=== PATIENT | female | born 1995 | race Caucasian/White ===

== ENCOUNTER 2018-01-13 20:54 | Emergency (ER) | payer BC ==
[~2018-01-13] VITALS: Ht 165.1 cm; Wt 94.3 kg
[~2018-01-13 20:54] MED LIST: LOR5/325 PO
--- NOTE | 2018-01-13 20:59 | ER Report ---
History and Physical Time Seen By MD: 20:59 HPI/ROS CHIEF COMPLAINT: Bilateral ear pain, fever, sore throat HISTORY OF PRESENT ILLNESS: 22-year-old female presents to the ER complaining of severe bilateral ear pain and throat pain. She's been unable to swallow. She was seen couple of days ago at urgent care and started on Keflex. She's not had any improvement after 2-3 days of Keflex. She's been taking ibuprofen without relief. Patient notes some nausea but no vomiting. Patient notes a productive cough. She notes increased pain with swallowing. REVIEW OF SYSTEMS: Respiratory: No cough, no dyspnea. Cardiovascular: No chest pain, no palpitations. Gastrointestinal: No vomiting, no abdominal pain. Musculoskeletal: No back pain. Allergies: Coded Allergies: No Known Drug Allergies (Unverified , 01/13/18) Home Meds Active Scripts Oxycodone Hcl/Acetaminophen (PERCOCET 5-325 MG TABLET) 1 Each Tablet, 1 EACH PO Q4-6H Y for PAIN, #12 Prov:MARCOS DUPONT DO 01/13/18 Amoxicillin/Pot Clav 875-125 Mg Tab (AUGMENTIN 875-125 TABLET) 1 Each Tablet, 1 TAB PO Q12H for infection, #14 TAB TAKE ONE TABLET BY MOUTH EVERY 12 HOURS Prov:MARCOS DUPONT DO 01/13/18 Reported Medications Cephalexin 500 Mg Tab (KEFLEX 500 MG TAB) 500 Mg Tablet, 500 MG PO Q6H, #28 TAB 01/13/18 Discontinued Scripts Hydrocodone Bit/Acetaminophen (HYDROCODON-ACETAMINOPHEN 5-325) 1 Each Tablet, 1 EACH PO Q4H Y for PAIN, #12 TAB 0 Refills Prov:MARIA ALEJANDRA WHYTE MD 03/02/17 Reviewed Nurses Notes: Yes Old Medical Records Reviewed: Yes Constitutional Vital Sign - Last 24 Hours 01/13/18 01/13/18 01/13/18 01/13/18 21:00 21:00 21:15 21:30 Temp 97.8 Pulse 88 88 82 94 Resp 14 B/P (MAP) 125/70 (88) 114/69 (84) Pulse Ox 96 96 95 95 O2 Delivery Room Air 01/13/18 01/13/18 21:45 22:00 Pulse 82 89 B/P (MAP) 116/77 (90) Pulse Ox 97 95 Physical Exam Vital signs stable, afebrile, pulse ox normal General Appearance: The patient is alert, has no immediate need for airway protection and no current signs of toxicity. Moderate distress HEENT: Pupils equal and round no injection. TMs bilaterally are erythematous and bulging., Oropharynx with tonsillar hypertrophy without exudate. Gross erythema Respiratory: Chest is non tender, lungs are clear to auscultation. No wheezing or rails Cardiac: regular rate and rhythm Gastrointestinal: Abdomen is soft and non tender, no masses, bowel sounds normal. Musculoskeletal: Neck: Neck is supple and non tender.+ Tender lymphadenopathy Extremities have full range of motion and are non tender. Skin: No rashes or lesions. DIFFERENTIAL DIAGNOSIS: After history and physical exam differential diagnosis was considered for otitis media, sinusitis, pharyngitis, strep pharyngitis, mononucleosis Medical Decision Making Data Points Laboratory Hematology Test 01/13/18 21:05 Influenza Virus Type A (PCR) Negative (NEGATIVE) Influenza Virus Type B (PCR) Negative (NEGATIVE) Group A Streptococcus Screen Negative (NEGATIVE) Chemistry Test 01/13/18 21:05 Influenza Virus Type A (PCR) Negative (NEGATIVE) Influenza Virus Type B (PCR) Negative (NEGATIVE) Group A Streptococcus Screen Negative (NEGATIVE) Microbiology Microbiology Date/Time Source Procedure Growth Status 01/13/18 21:05 Throat Group A Streptococcus Screen ([facility]) - Preliminary NORMAL RESPIRATORY JEMMA PRESENT, CUL... Resulted ED Course/Re-evaluation ED Course Patient was admitted to an examination room. H&P was done. The differential diagnoses was considered. Patient appears to be failing Keflex therapy. Patient be treated with Decadron 12 mg, hydrocodone, Phenergan, and Augmentin. Patient advised ibuprofen 600 mg 3 times daily. She is advised to follow-up with primary care if unimproved in 3-5 days. Decision to Disposition Date: Jan 13, 2018 Decision to Disposition Time: 21:13 Depart Departure Latest Vital Signs Vital Signs Date Time Temp Pulse Resp B/P (MAP) Pulse Ox O2 Delivery O2 Flow Rate FiO2 01/13/18 22:00 89 116/77 (90) 95 01/13/18 21:00 97.8 14 Room Air Impression: Primary Impression: Bilateral otitis media Additional Impression: Tonsillitis Condition: Improved Disposition: HOME OR SELF-CARE Referrals: SANJAY PAEZ,SAURABH Birch MD [facility] Oxycodone Hcl/Acetaminophen (PERCOCET 5-325 MG TABLET) 1 Each Tablet 1 EACH PO Q4-6H Y for PAIN, #12 Prov: MARCOS DUPONT DO 01/13/18 Amoxicillin/Pot Clav 875-125 Mg Tab (AUGMENTIN 875-125 TABLET) 1 Each Tablet 1 TAB PO Q12H for infection, #14 TAB TAKE ONE TABLET BY MOUTH EVERY 12 HOURS Prov: MARCOS DUPONT DO 01/13/18 Patient Instructions: Otitis Media (ED), Tonsillitis (ED) Additional Instructions: Take ibuprofen 200 mg 3 tablets 3 times a day with food Eat popsicles to soothe her throat and keeping hydrated Take medications as prescribed Call Dr. Saurabh Lamb ENT, Dr. [phone] for an appointment next week for recheck and consideration of tonsillectomy Problem Qualifiers Primary Impression: Bilateral otitis media Otitis media type: suppurative Chronicity: acute Recurrence: not specified as recurrent Spontaneous tympanic membrane rupture: without spontaneous rupture Qualified Codes: H66.003 - Acute suppurative otitis media without spontaneous rupture of ear drum, bilateral MARCOS DUPONT DO Jan 13, 2018 20:59
[2018-01-13] MEDS ORDERED: CEPH500T7 PO (21:00)
[2018-01-13] MEDS ORDERED: DEXAMETHASONE 4 MG TAB PO ONE (21:15)
[2018-01-13] MEDS ORDERED: OXYC-865 PO (21:15)
[2018-01-13] MEDS ORDERED: PROMETHAZINE HCL 25 MG TAB PO ONE (21:15)
[2018-01-13] MEDS ORDERED: AMOX/CLAV 875 MG TAB PO ONE (21:15)
[2018-01-13] MEDS ORDERED: oxyCODONE/ACETAMIN 5/325MG TH 2 TAB/BOTTLE PO ONE (21:15)
[2018-01-13] MEDS ORDERED: AMOX-559 PO (21:15)
[2018-01-13] MEDS ORDERED: ONDANSETRON 4 MG ODT TABDP SL ONE (21:15)
[2018-01-13 22:00] VITALS: BP 116/77
== END 2018-01-13 22:15 | disposition home or self-care (01) ==
LOC: ER 21:03
DX: H66.003 Acute suppurative otitis media without spontaneous rupture of ear drum, bilateral (principal); J03.90 Acute tonsillitis, unspecified
CPT/HCPCS: 87081; 87502; 87880; 99282; J8540; Q0169; S0119

== ENCOUNTER 2018-03-28 05:57 | Day surgery (SDC) | payer BC ==
[2018-03-28] VITALS (9 sets, daily range): BP systolic 107–121; BP diastolic 67–85
[~2018-03-28] VITALS: Ht 165.1 cm; Wt 93.9 kg
[~2018-03-28 05:57] MED LIST changes: +AMOX-559 PO; +CEPH500T7 PO; +OXYC-865 PO
[2018-03-28] MEDS ORDERED: fentaNYL CITR 100 MCG/2 ML AMP ONE ×4 (06:43→09:00)
[2018-03-28] MEDS ORDERED: DEXAMETHASONE SOD PHOS 10MG/ML ONE (06:45)
[2018-03-28] MEDS ORDERED: PROPOFOL EMUL(*) 10MG/ML 20 ML 20 ML ONE (06:45)
[2018-03-28] MEDS ORDERED: LIDOCAINE MPF 1% 5 ML VIAL ONE (06:45)
[2018-03-28] MEDS ORDERED: ONDANSETRON 4 MG/2 ML VIAL ONE (06:45)
[2018-03-28] MEDS ORDERED: ceFAZolin(*) 1 GM VIAL 1 GM in NS(*) 0.9% 100 ML ADDVANT BAG 100 ML IVPB ONE (07:20)
[2018-03-28] MEDS ORDERED: NS 0.9% 20 ML SDV 20 ML ONE (08:44)
[2018-03-28] MEDS ORDERED: OXYC-865 PO (09:05)
[2018-03-28] MEDS ORDERED: AMOX500T10 PO (09:06)
[2018-03-28] MEDS ORDERED: LIDO100S11 PO (09:09)
[2018-03-28] MEDS ORDERED: NORMOSOL R SOLN(*) 1000 ML BAG 1,000 ML IV PRN (09:45)
[2018-03-28] MEDS ORDERED: LIDOCAINE/SOD BICARB 8.4% SYR ID ONE (09:45)
[2018-03-28] MEDS ORDERED: MIDAZOLAM 2 MG/2 ML VIAL IVP PRN (09:45)
[2018-03-28] MEDS ORDERED: FAMOTIDINE 20 MG TAB PO ONE (09:45)
--- NOTE | 2018-03-29 14:43 | OPERATIVE REPORT 1 ---
EVENT DATE: March 28, 2018 SURGEON: Saurabh Lamb MD ANESTHESIOLOGIST: Vamshi Saenz MD ANESTHESIA: LMA PROCEDURE PERFORMED Tonsillectomy. PREOPERATIVE DIAGNOSIS Recurrent streptococcal tonsillitis. POSTOPERATIVE DIAGNOSIS Recurrent streptococcal tonsillitis. INDICATIONS Please refer to the preoperative note. DESCRIPTION OF PROCEDURE The patient was positively identified in the preoperative area. She was there alone. Risks again explained include, but were not limited to bleeding, infection, and those associated with anesthesia. She acknowledged understanding of those risks. She was then brought back to the operative suite , placed supine on the operative table, and anesthesia was administered. Once asleep, patient was positioned, prepped, and draped in the usual sterile fashion. A McIvor mouth gag was placed in the patient's oral cavity. A red rubber catheter was placed through the right nostril and utilized to suspend the soft palate. The patient was noticed to have 3+ tonsils bilaterally. The right tonsil was then grasped with a curved Allis forceps and carefully dissected from the lateral pharyngeal wall with Bovie electrocautery. In a similar fashion, the contralateral tonsil was removed. Hemostasis was further obtained with suction Bovie electrocautery. The patient was then turned to Anesthesia for emergence. Estimated blood loss 10 mL. No complications. MTDD
== END 2018-03-28 09:30 | disposition home or self-care (01) ==
LOC: OR 05:57
PROVIDERS: ATTEND Otolaryngology
DX: J03.01 Acute recurrent streptococcal tonsillitis (principal)
CPT/HCPCS: 42826; 81025; 88304; J0690; J1100; J2001; J2250; J2405; J2704; J3010; J7050

== ENCOUNTER 2018-04-03 04:53 | Emergency (ER) | payer BC ==
[~2018-04-03 04:53] MED LIST changes: +AMOX500T10 PO; +LIDO100S11 PO
--- NOTE | 2018-04-03 05:04 | ER Report ---
History and Physical Time Seen By MD: 04:58 HPI/ROS CHIEF COMPLAINT: Postoperative pain HISTORY OF PRESENT ILLNESS: 22-year-old female presents to the ER requesting refill of her pain medication. Patient status post tonsillectomy dated . Cried 40 Percocet 5/325's. She's used all of them up to every 4 hours. She states she is taking both ibuprofen and Aleve for additional pain relief. She was cautioned to cut back to either one or the other, and Maxalt the dose to relieve 5 and 24 hours or ibuprofen 200 mg 12 tablets in 24 hours. She is advised to take them with food. Patient's cautioned that she is taking excessive amounts of opiate medication. She states of becoming addicted. She is strongly encouraged to wean herself off with a prescription that I will provide her. She is advised to use supplemental Sucrets numbing throat lozenge or sore additional pain relief. Patient denies fever or chills. Patient denies nausea or vomiting. REVIEW OF SYSTEMS: Respiratory: No cough, no dyspnea. Cardiovascular: No chest pain, no palpitations. Gastrointestinal: No vomiting, no abdominal pain. Musculoskeletal: No back pain. Allergies: Coded Allergies: No Known Drug Allergies (Unverified , 03/22/18) Home Meds Active Scripts Oxycodone Hcl/Acetaminophen (PERCOCET 5-325 MG TABLET) 1 Each Tablet, 1 EACH PO Q4-6H Y for PAIN, #10 Prov:MARCOS DUPONT DO 04/03/18 Reported Medications Lidocaine HCl/Pf (Lidocaine 100 mg/5 ml (2%) Syr) 100 Mg/5 Ml (2 %) Syringe, 15 ML PO Q2H Y for SORE THROAT, #500 ML 03/28/18 Amoxicillin 500 Mg Tab (AMOXICILLIN 500 MG TAB) 500 Mg Tablet, 1 TAB PO TID for 7 Days, #21 TAB 03/28/18 Oxycodone Hcl/Acetaminophen (PERCOCET 5-325 MG TABLET) 1 Each Tablet, 1-2 EACH PO Q4H Y for PAIN, #40 TAB 03/28/18 Reviewed Nurses Notes: Yes Old Medical Records Reviewed: Yes Hx Smoking: No Smoking Status: Never Smoker Hx Substance Use Disorder: No Hx Alcohol Use: No Constitutional Vital Sign - Last 24 Hours 04/03/18 04:53 Temp 98.6 Pulse 86 Resp 18 B/P (MAP) 132/54 Pulse Ox 93 O2 Delivery Room Air Physical Exam General Appearance: The patient is alert, has no immediate need for airway protection and no current signs of toxicity. Moderate distress, vital signs stable, tearful and crying. HEENT: Pupils equal and round no injection. TMs normal, oropharynx with white patchy exudates at the site of the tonsil surgery. Respiratory: Chest is non tender, lungs are clear to auscultation. Cardiac: regular rate and rhythm Gastrointestinal: Abdomen is soft and non tender, no masses, bowel sounds normal. Musculoskeletal: Neck: Neck is supple and non tender. There is no induration. The neck tissues, no lymphadenopathy noted Extremities have full range of motion and are non tender. Skin: No rashes or lesions. DIFFERENTIAL DIAGNOSIS: After history and physical exam differential diagnosis was considered for postoperative pain, opiate addiction, throat pain, tonsillectomy pain Medical Decision Making ED Course/Re-evaluation ED Course Patient was admitted to an examination room. H&P was done. The differential diagnoses was considered. On conical examination, patient appears to be in acute distress. Examination of her throat is consistent with postoperative day 6. Generally she's been using excessive amounts of opiate pain relievers. She is cautioned to wean off the medication over the next several days. She's given a limited supply of Percocet 5/325 #10 tablets. She'll be dispensed 2 tablets to go home with tonight to use until the morning. Advised to follow-up with Dr. Lamb for further management of her postoperative pain. He is advised to max out on one NSAID. Decision to Disposition Date: April 03, 2018 Decision to Disposition Time: 05:03 Depart Departure Latest Vital Signs Vital Signs Date Time Temp Pulse Resp B/P (MAP) Pulse Ox O2 Delivery O2 Flow Rate FiO2 04/03/18 04:53 98.6 86 18 132/54 93 Room Air Impression: Primary Impression: Postoperative pain Additional Impression: Status post tonsillectomy Condition: Improved Disposition: HOME OR SELF-CARE New Scripts Oxycodone Hcl/Acetaminophen (PERCOCET 5-325 MG TABLET) 1 Each Tablet 1 EACH PO Q4-6H Y for PAIN, #10 Prov: MARCOS DUPONT DO 04/03/18 Patient Instructions: Tonsillectomy (GEN) Additional Instructions: Follow-up with Dr. Lamb on Wednesday Problem Qualifiers MARCOS DUPONT DO April 03, 2018 05:04
[2018-04-03] MEDS ORDERED: OXYC-865 PO (05:07)
[2018-04-03] MEDS ORDERED: oxyCODONE/ACETAMIN 5/325MG TH 2 TAB/BOTTLE PO ONE (05:10)
[2018-04-03 05:16] VITALS: BP 125/77
== END 2018-04-03 05:17 | disposition home or self-care (01) ==
LOC: ER 05:07
DX: G89.18 Other acute postprocedural pain (principal); Z98.890 Other specified postprocedural states
CPT/HCPCS: 99281